=== PATIENT | male | born 1990 | race African-American/Black ===

== ENCOUNTER 2024-07-11 22:30 | Emergency (ER) | payer OTHER ==
[2024-07-12] MEDS ORDERED: Naproxen 500 MG TAB ONE (01:17)
== END 2024-07-12 01:25 | disposition home or self-care (01) ==
LOC: CSHERS 22:30
DX: S16.1XXA Strain of muscle, fascia and tendon at neck level, initial encounter (principal); V40.5XXA Car driver injured in collision with pedestrian or animal in traffic accident, initial encounter
CPT/HCPCS: 99283